=== PATIENT | female | born 1935 | race Caucasian/White ===

== ENCOUNTER → 2017-12-28 | Outpatient (RCR) | payer MEDICARE, BC | LOC: PT 11-30 08:41 | PROVIDERS: ATTEND Orthopaedic Surgery | DX: Z96.651 Presence of right artificial knee joint (principal); Z47.1 Aftercare following joint replacement surgery; M25.561 Pain in right knee; M25.661 Stiffness of right knee, not elsewhere classified; M62.81 Muscle weakness (generalized); R26.2 Difficulty in walking, not elsewhere classified | CPT/HCPCS: 97010 ×3; 97110 ×8; 97139; 97161; G8978; G8979 ==

== ENCOUNTER 2018-01-27 12:45 | Outpatient (RCR) | payer MEDICARE, BC | END 2018-01-28 | LOC: PT 12:45 | PROVIDERS: ATTEND Orthopaedic Surgery | DX: Z96.651 Presence of right artificial knee joint (principal); Z47.1 Aftercare following joint replacement surgery; M25.561 Pain in right knee; M25.661 Stiffness of right knee, not elsewhere classified; R26.2 Difficulty in walking, not elsewhere classified; M62.81 Muscle weakness (generalized) | CPT/HCPCS: 97110 ×8; 97139; G8978 ×2; G8979 ×2 ==